=== PATIENT | female | born 1985 | race Caucasian/White ===

== ENCOUNTER 2023-11-17 10:36 | Emergency (ER) | payer OTHER, SELFPAY ==
[2023-11-17 10:46] VITALS: BP 103/74; PULSE 74; RESP 18; TEMP 36.7; O2SAT 98; BMI 26.2
--- NOTE | 2023-11-17 10:58 | ED_ITS ---
HPI - Abdominal Pain General Time Seen by Provider: 10:58 Date Seen: 11/17/23 Chief Complaint: Abdominal Pain Stated Complaint: Upper abdominal pain Time Seen by Provider: 11/17/23 10:50 Source: patient and RN notes reviewed Mode of arrival: ambulatory Limitations: no limitations History of Present Illness HPI narrative: This 38-year-old female is coming to the ER after being evaluated in clinic today. She has had epigastric abdominal pain without radiation since Wednesday. She is nauseated, states she can not eat anything. She has had 1 episode of vomiting. Can not really tell me if there is any temporal relationship with eating because she cannot eat at this time due to nausea. She felt chilled last night but has had no fevers. She has noted no change in bowel habits. Baseline she states she will alternate between diarrhea and constipation. She has never had any abdominal surgery. She had a white blood count in clinic today, was mildly low but she states that is normal for her. Her mom has had her gallbladder out. She does suffer from chronic reflux disease. She will get the epigastric area pain but will be a little bit different than she is having now; she will get the acid reflux and feel burning throughout her chest. She occasionally will take medicine for it, does not take anything chronically. This epigastric pain has been constant, seems to be different than her reflux disease. MD elicited complaint: abdominal pain Related Data Home Medications Medication Instructions Recorded Confirmed No Known Home Medications 09/10/22 11/17/23 Previous Rx's Medication Instructions Recorded omeprazole 40 mg capsule,delayed 40 mg PO DAILY #14 caps 11/17/23 release ondansetron 4 mg disintegrating 4 mg PO Q6H PRN nausea and 11/17/23 tablet vomiting #20 tabs Allergies Allergy/AdvReac Type Severity Reaction Status Date / Time No Known Allergies Allergy Severe Unknown Uncoded 11/17/23 08:21 Review of Systems Status of ROS Reports: 6 or more systems reviewed and unremarkable except as noted in History and below [facility] Medical History Nausea ?R11.0 - Nausea (ICD-10) Abdominal pain ?R10.9 - Unspecified abdominal pain (ICD-10) Otalgia of both ears ?H92.03 - Otalgia, bilateral (ICD-10) Family History (Updated 06/25/22 @ 11:23 by Lizett Noriega ~ PSR) Mother Migraine Social History Narrative: Does not drink alcohol Nonsmoker Does not use illicit drugs Smoking Status: Never smoker Do you use any of these nicotine containing products: None Second hand tobacco smoke exposure: No How often do you have a drink containing alcohol: never AUDIT-C Alcohol total score: 0 Non-prescribed substance use: denies use Little interest or pleasure in doing things: not at all Feeling down, depressed, or hopeless: several days service: No Exam Const: Vital Signs, click to edit/add: Vital Signs - 24 hr 11/17/23 10:46 11/17/23 13:16 Temperature 98.1 F Pulse Rate [Pulse Oximeter] 74 79 Respiratory Rate 18 Blood Pressure [Ri ght Upper Arm] 103/74 94/65 Pulse Oximetry 98 100 Oxygen Delivery Me thod Room Air Room Air This 38-year-old female is alert, interactive, no parents stress. Ambulatory into the ED of her own accord. Sclera clear, conjugate gaze, no icterus. Symmetrical facial function, speech is normal. Neck is supple, no masses or adenopathy. Lungs are clear, good air entry, no wheezing or crackles. CV regular rate and rhythm, no murmur, normal S1-S2, no S3-S4. Abdomen currently is soft, no organomegaly, she really does not have any significant tenderness when I palpate. There is normal sound in bowels on examination, abdomen is nondistended. Skin without jaundice or rash. Documenting provider has reviewed patient's vital signs: yes Course Course ED Course: Patient is obviously concerned about her gallbladder in did review that biliary dysfunction is a consideration here. We did review gallstones, other biliary entities such as dysfunctional gallbladder. She understands that we will be obtaining labs, will not repeat her white blood count as I can see this from clinic earlier. Will get a bilirubin and comprehensive metabolic panel, lipase, lactate, C reactive protein. She will get a L of IV fluids, see if she responds 4 mg IV Zofran for her nausea. It is possible that this could be a gastroenteritis, gastric pathology such as gastritis or early peptic ulcer disease. There is no evidence of GI bleeding at this time. She understands that if her laboratory evaluation and ultrasound are normal here, she may need f urther evaluation with such possibilities as HIDA scan, EGD if ongoing issues. She understands that these are not things that we would do emergently out of the ER. She is currently hemodynamically stable and afebrile. Reevaluation(s) Time of Reevaluation #1: 13:04 Reevaluation #1: Reviewed with patient her normal ultrasound, normal labs outside of the mildly elevated C-reactive protein. This could be gastric in nature like gastritis, some mild gastroenteritis. We did discuss doing further imaging with CT imaging as she had brought this up to nursing staff on arrival. We did review benefits and risks with CT imaging. At this point she is declining. I do support this approach, her abdominal exam was quite benign. She does feel little better with the fluids in the Zofran. We have discussed discharge to home for outpatient trial with use of Zofran and initiation of a 2 week course of omeprazole. We discussed signs and symptoms for return. Vital Signs Vital signs: Initial Vital Signs Temperature 98.1 F 11/17/23 10:46 Temperature Source Temporal Artery Scan 11/17/23 10:46 Pulse Rate 74 11/17/23 10:46 Pulse Rhythm Regular 11/17/23 10:46 Respiratory Rate 18 11/17/23 10:46 Blood Pressure 103/74 11/17/23 10:46 Blood Pressure Mean 83 11/17/23 10:46 Blood Pressure Position Supine 11/17/23 10:46 Pulse Oximetry 98 11/17/23 10:46 Oxygen Delivery Method Room Air 11/17/23 10:46 Vital Signs Temperature 98.1 F 11/17/23 10:46 Pulse Rate 74 11/17/23 10:46 Respiratory Rate 18 11/17/23 10:46 Blood Pressure 103/74 11/17/23 10:46 Pulse Oximetry 98 11/17/23 10:46 Oxygen Delivery Method Room Air 11/17/23 10:46 Temperature 98.1 F 11/17/23 10:46 Pulse Rate 79 11/17/23 13:16 Respiratory Rate 18 11/17/23 10:46 Blood Pressure 94/65 11/17/23 13:16 Pulse Oximetry 100 11/17/23 13:16 Oxygen Delivery Method Room Air 11/17/23 13:16 Medications Administered Medications: Discontinued Medications Generic Name Dose Route Start Last Admin Trade Name Freq PRN Reason Stop Dose Admin Sodium Chloride 1,000 mls @ 1,000 mls/hr 11/17/23 11:11 11/17/23 13:00 0.9 % Sodium Chloride 1000 Ml IV 11/17/23 12:10 Infused .Q1H SAMANTHA Infusion Ondansetron HCl 4 mg 11/17/23 11:10 11/17/23 11:58 Ondansetron 2 Mg/Ml Inj IVP 11/17/23 11:11 4 mg ONCE ONE Administration MDM - Abdominal Pain Lab Data Attestation: I reviewed the patient's lab results. Labs: Lab Results 11/17/23 11/17/23 11/17/23 Range/Units 11:13 11:45 12:31 Sodium 138 (135-149) mmol/L Potassium 3.7 (3.6-5.1) mmol/L Chloride 106 (96-114) mmol/L Carbon Dioxide 24 (20-32) mmol/L Anion Gap 8 (7-15) mEq/L BUN 9 (5-24) mg/dL Creatinine 0.7 (0.5-1.5) mg/dL Estimated Creat Clear 87.87 Estimated GFR 115 ml/min Glucose 98 (60-115) mg/dL Lactate 0.8 (0.5-1.9) mmol/L Calcium 9.0 (8.4-10.6) mg/dL Total Bilirubin 1.0 (0.1-1.5) mg/dL Direct Bilirubin 0.0 (0.0-0.5) mg/dL AST 22 (12-35) U/L ALT 26 (4-35) U/L Alkaline Phosphatase 68 (40-150) U/L C-Reactive Protein 2.4 H (0.5-1.0) mg/dL Total Protein 7.4 (6.0-8.3) g/dL Albumin 4.5 (3.3-5.0) g/dL Lipase 100 (23-300) U/L HCG, Qual Cancelled Urine HCG, Qual Negative (Negative) Lab Acknowledgement Test Added Imaging Data US - abdomen: Attestation: I have reviewed the pertinent imaging results. Radiologist's impression: Patient: LENI PHILLIP Facility:?[facility] Patient ID:?[id number] Site Patient ID:?[id number]. Site :?[id number] Study:?US Abdomen RUQ-11/17/2023 12:27:10 PM Ordering Physician:Charlotte Sewell Final Report: INDICATION: Epigastric pain with nausea and vomiting COMPARISON: None. TECHNIQUE: Pizarro-scale and color ultrasound of the right upper quadrant to include the liver, gallbladder (or gallbladder fossa), biliary tree, pancreatic head, and right kidney. FINDINGS: Liver: Normal hepatic echogenicity and normal echotexture. No mass. Gallbladder: Normal. Distention: Normal. Wall: Normal thickness. Stones: None. Sludge: None. Pericholecystic inflammation/fluid: None. Sonographic Resendiz`s sign: Negative. Bile ducts: Not dilated. The common bile duct measures 4 mm. Pancreatic head: Normal. Right Kidney: Renal length: 10.5 cm Parenchyma: Normal thickness and normal echogenicity. Cyst: None Mass: None Calculi: None Urinary tract: Not dilated. RUQ Ascites: None. The upper abdominal aorta and IVC appear normal. IMPRESSION: Normal right upper quadrant ultrasound. Dictated by Freya Dorsey MD @ 11/17/2023 12:43:49 PM (Electronic Signature) Critical Care Time Critical Care Time Critical Care Time: No Discharge Plan Discharge Clinical Impression: Acute epigastric pain Patient Disposition: Home, Self-Care Condition: Stable Instructions: Epigastric Pain (ED) Additional Instructions: Can try the Zofran for nausea. Would start with clear liquids, can advance your diet back to normal as tolerated. Use daily omeprazole for 2 weeks. Do recommend that you follow up in clinic within the next few days for recheck. If at any point you develop fevers, have increasing abdominal pain or uncontrolled nausea vomiting, do recommend re-evaluation. Activity Level: Activity as Tolerated Prescriptions: New omeprazole 40 mg capsule,delayed release(DR/EC) 40 mg PO DAILY Qty: 14 0RF ondansetron 4 mg tablet,disintegrating 4 mg PO Q6H PRN (Reason: nausea and vomiting) Qty: 20 0RF No Action No Known Home Medications Follow Up/Referrals: Yancy Padron MD [Primary Care Provider] - Stand Alone Forms: [employer] Info Instructions
--- NOTE | 2023-11-17 11:10 | CRLHL7_ITS ---
For Patients: As a result of the Century Cures Act, medical imaging exams and procedure reports are released immediately into your electronic medical record. You may view this report before your referring provider. If you have questions, please contact your health care provider. INDICATION: Epigastric pain with nausea and vomiting COMPARISON: None. TECHNIQUE: Pizarro-scale and color ultrasound of the right upper quadrant to include the liver, gallbladder (or gallbladder fossa), biliary tree, pancreatic head, and right kidney. FINDINGS: Liver: Normal hepatic echogenicity and normal echotexture. No mass. Gallbladder: Normal. Distention: Normal. Wall: Normal thickness. Stones: None. Sludge: None. Pericholecystic inflammation/fluid: None. Sonographic Resendiz`s sign: Negative. Bile ducts: Not dilated. The common bile duct measures 4 mm. Pancreatic head: Normal. Right Kidney: Renal length: 10.5 cm Parenchyma: Normal thickness and normal echogenicity. Cyst: None Mass: None Calculi: None Urinary tract: Not dilated. RUQ Ascites: None. The upper abdominal aorta and IVC appear normal. IMPRESSION: Normal right upper quadrant ultrasound. Dictated by Freya Dorsey MD @ 11/17/2023 12:43:49 PM (Electronically Signed)
[2023-11-17 11:51] LABS: Lactate* 0.8 mmol/L (0.5-1.9)
[2023-11-17] MEDS: 0.9 % SODIUM CHLORIDE 1000 ml 1,000 ML IV (11:57)
[2023-11-17] MEDS: ONDANSETRON 2 MG/ML inj 4 MG IVP (11:58)
[2023-11-17 12:09] LABS: Albumin* 4.5 g/dL (3.3-5.0); Chloride* 106 mmol/L (96-114)
[2023-11-17 12:10] LABS: Potassium* 3.7 mmol/L (3.6-5.1); Sodium* 138 mmol/L (135-149)
[2023-11-17 12:12] LABS: Creatinine* 0.7 mg/dL (0.5-1.5); Est. Creatinine Clearance* 87.87; Estimated Glomerular Filt Rate 115 ml/min
[2023-11-17 12:13] LABS: Alanine Aminotransferase* 26 U/L (4-35); Alkaline Phosphatase* 68 U/L (40-150); Aspartate Amino Transferase* 22 U/L (12-35); Blood Urea Nitrogen* 9 mg/dL (5-24); Carbon Dioxide* 24 mmol/L (20-32); Glucose* 98 mg/dL (60-115); Lipase* 100 U/L (23-300); Total Protein* 7.4 g/dL (6.0-8.3)
[2023-11-17 12:15] LABS: C Reactive Protein* 2.4 mg/dL (0.5-1.0)
[2023-11-17 12:30] LABS: Anion Gap 8 mEq/L (7-15)
[2023-11-17 12:47] LABS: Ur HCG Qualitative* Negative (Negative)
[2023-11-17 13:16] VITALS: BP 94/65; PULSE 79; O2SAT 100
== END 2023-11-17 13:19 | disposition home or self-care (01) ==
PROVIDERS: Emergency Provider Family Medicine; PCP Family Medicine
DX: R10.13 Epigastric pain (principal)
CPT/HCPCS: 36415; 76705; 80053; 81025; 82248; 83605; 83690; 84703; 86140; 96361; 96374; 99284; J2405; J7030

== ENCOUNTER 2024-02-07 12:11 | Outpatient (CLI) | payer OTHER, SELFPAY | END 2024-02-07 12:12 | disposition home or self-care (01) | PROVIDERS: PCP Family Medicine; Visit Provider Family Medicine | DX: N92.6 Irregular menstruation, unspecified (principal); Z13.29 Encounter for screening for other suspected endocrine disorder | CPT/HCPCS: 83001; 84146; 84443 ==